=== PATIENT | female | born 1995 | race Hispanic/Latino ===

== ENCOUNTER 2022-02-07 18:41 | Emergency (ER) | payer OTHER ==
[~2022-02-07] VITALS: Ht 175.3 cm; Wt 74.4 kg
[2022-02-07] MEDS ORDERED: HYDROCODONE/ACETAMINOPHEN 10/325 MG TAB PO ONE (19:30)
[2022-02-07] MEDS ORDERED: IBUPROFEN 600 MG TABLET PO ONE (19:30)
[2022-02-07] MEDS ORDERED: IBUP-2071 PO (19:40)
[2022-02-07 20:04] VITALS: BP 105/70
== END 2022-02-07 20:09 | disposition home or self-care (01) ==
LOC: EDH 18:41
DX: S93.401A Sprain of unspecified ligament of right ankle, initial encounter (principal); X58.XXXA Exposure to other specified factors, initial encounter; Y93.89 Activity, other specified; Y92.89 Other specified places as the place of occurrence of the external cause; Y99.8 Other external cause status
CPT/HCPCS: 73610

== ENCOUNTER 2022-12-07 00:18 | Emergency (ER) | payer OTHER ==
[~2022-12-07] VITALS: Ht 170.2 cm; Wt 73.5 kg
[~2022-12-07 00:18] MED LIST: IBUP-2071 PO
[2022-12-07 02:14] LABS: APPEARANCE,URINE CLEAR (CLEAR); BILIRUBIN,URINE NEGATIVE (NEGATIVE); COLOR,URINE LIGHT-YELLOW (YELLOW); GLUCOSE, URINE (UA) NEGATIVE (NEGATIVE); KETONES,URINE NEGATIVE (NEGATIVE); LEUKOCYTE ESTERASE ,URINE NEGATIVE Leu/uL (NEGATIVE); NITRATE,URINE NEGATIVE (NEGATIVE); OCCULT BLOOD,URINE NEGATIVE (NEGATIVE); PROTEIN,URINE NEGATIVE (NEGATIVE); UROBILINOGEN,URINE 0.2 mg/dL (0.2-1.0)
[2022-12-07 02:28] LABS: HCG,QUALITATIVE URINE NEGATIVE (NEGATIVE)
[2022-12-07 02:29] LABS: MUCUS,URINE RARE LPF (None Seen); RBC,URINE 0-1 /HPF (0-1); SQUAMOUS EPITHELIAL CELL,UR RARE /HPF (0-2); WBC,URINE 0-1 /HPF (0-1)
[2022-12-07 04:38] VITALS: BP 117/45; PULSE 74; RESP 16; O2SAT 98
[2022-12-07] MEDS ORDERED: DICY20TA2 PO (05:02)
== END 2022-12-07 05:08 | disposition home or self-care (01) ==
LOC: EDH 00:18
DX: R10.2 Pelvic and perineal pain (principal)
CPT/HCPCS: 76705; 76856; 81001; 81025

== ENCOUNTER 2023-07-10 14:27 | Emergency (ER) | payer OTHER ==
[~2023-07-10 14:27] MED LIST changes: +AZIT250T9 PO; +DICY20TA2 PO; +IBUP-2070 PO; +PHEN118L19 PO; +PSEU120T62 PO
== END 2023-07-10 17:14 | disposition left against medical advice (07) ==
LOC: EDH 14:27
DX: R73.9 Hyperglycemia, unspecified (principal); Z53.21 Procedure and treatment not carried out due to patient leaving prior to being seen by health care provider

== ENCOUNTER 2024-01-16 02:30 | Emergency (ER) | payer SELFPAY ==
[~2024-01-16] VITALS: Ht 170.2 cm; Wt 74.4 kg
[2024-01-16] MEDS ORDERED: CIPR7.5D7 AS (02:40)
[2024-01-16] MEDS ORDERED: AMOX1TAB16 PO (02:40)
[2024-01-16 03:20] VITALS: BP 119/80; PULSE 74; RESP 17; TEMP 97.8; O2SAT 99
[2024-01-16] MEDS: dexaMETHasone SOD PHOSPHATE 4 MG/ML 1ML VIAL IM ONE (03:30)
[2024-01-16] MEDS: cefTRIAXone 1G VIAL IM ONE (03:31)
[2024-01-16] MEDS: CIPROFLOXACIN HCL 0.2%/HYDROCORT 1% 10 ML OTIC SUSP AS ONE (03:32)
[2024-01-16] MEDS: ketOROlac 30MG VIAL (30MG/ML) IM ONE (03:41)
== END 2024-01-16 04:18 | disposition home or self-care (01) ==
LOC: EDH 02:30
DX: H66.92 Otitis media, unspecified, left ear (principal); Z79.899 Other long term (current) drug therapy; Z98.890 Other specified postprocedural states
CPT/HCPCS: 99284; 96372 ×3; J1100; J0696; J1885